=== PATIENT | male | born 1975 | race Caucasian/White ===

== ENCOUNTER → 2022-10-15 12:37 | Outpatient (CLI) | payer OTHER, SELFPAY ==
--- NOTE | ~2022-10-15 | XR_ITS ---
EXAMINATION: XR abdomen/kub 1V DATE: 10/15/2022 13:04 INDICATION: Calcium kidney stone. TECHNIQUE: A supine view of the abdomen on 2 radiographs was obtained. COMPARISON: CT abdomen and pelvis 10/15/2022 FINDINGS: There are no dilated loops of bowel. There are phleboliths in right pelvis. There is a 4 mm calcification in the expected area of distal left ureter. IMPRESSION: 1. 4 mm calcification in the expected area of distal left ureter, which may be a phlebolith or less l ikely a ureteral stone. Reviewed, dictated and finalized at location A. TURNER IMPRESSION: 1. 4 mm calcification in the expected area of distal left ureter, which may be a phlebolith or less likely a ureteral stone.
--- NOTE | ~2022-10-15 | CT_ITS ---
EXAMINATION: CT abdomen pelvis wo con DATE: 10/15/2022 13:03 INDICATION: Calcium kidney stone. TECHNIQUE: Computed tomography (CT) of the abdomen and pelvis was performed without intravenous contr ast. Automated exposure control and iterative reconstruction technique were employed. The dose-length product was 1055.67 mGy-cm. COMPARISON: None. FINDINGS: The visualized portions of the lung bases are clear without pneumonia or pleural effusion. The heart size is normal. No pericardial effusion. There is a small sliding hiatal hernia. There are surgical changes of the stomach. The liver and spleen are normal. There are gallstones in the gallbla dder, which is normal in size. The pancreas, adrenal glands, and right kidney are normal. There is a 2.8 cm mass in left kidney measuring soft tissue attenuation. There is a 4 mm calcification near the expected area of distal left ureter. There is an umbilical hernia containing fat. The prostate is mil dly enlarged. There are no dilated loops of bowel. There are changes of appendectomy. There are no pa thologically enlarged lymph nodes. There is no free intraperitoneal fluid. There is moderate thoracic and lumbar spondylosis. There is mild chronic anterior wedging of T8 vertebral body. IMPRESSION: 1. 4 mm calcification near the expected area of distal left ureter. This finding is more likely a phl ebolith than a ureteral stone. No hydronephrosis or hydroureter. 2. 2.8 cm mass in left kidney measuring soft tissue attenuation, which may be a hemorrhagic cyst or r enal cell carcinoma. Abdomen CT without and with contrast is recommended. 3. Umbilical hernia containing fat. 4. Cholelithiasis. Reviewed, dictated and finalized at location A. OM APPLICATOR IMPRESSION: 1. 4 mm calcification near the expected area of distal left ureter. This findin g is more likely a phlebolith than a ureteral stone. No hydronephrosis or hydro ureter. 2. 2.8 cm mass in left kidney measuring soft tissue attenuation, which may be a hemorrhagic cyst or renal cell carcinoma. Abdomen CT without and with contrast is recommended. 3. Umbilical hernia containing fat. 4. Cholelithiasis.
== END ==
PROVIDERS: PCP Urology; Visit Provider Urology
DX: N20.0 Calculus of kidney (principal); K80.20 Calculus of gallbladder without cholecystitis without obstruction; K42.9 Umbilical hernia without obstruction or gangrene
CPT/HCPCS: 74018; 74176